=== PATIENT | male | born 1995 | race Caucasian/White ===

== ENCOUNTER 2016-07-19 16:24 | Emergency (ER) | payer OTHER ==
[~2016-07-19] VITALS: Ht 172.7 cm; Wt 65.8 kg
[~2016-07-19 16:24] MED LIST: ANTIBIOTIC O500 U/GM TP; AUGMENTIN 875875 MG PO; BACTRIM DS 8001 TA1 PO; DARVOCET N 1001 TAB PO; DOXYCYCLINE HY100 M3 PO; DOXYCYCLINE MO100 MG PO; HYDROCODONE BIT1 T11 PO; KETOROLAC10 MG PO; NAPROSYN500 MG PO; NKHM
[2016-07-19] MEDS ORDERED: BACTRIM DS 8001 TA1 PO (16:47)
[2016-07-19] MEDS ORDERED: CEPHALEXIN500 M1 PO (16:47)
== END 2016-07-19 17:01 | disposition home or self-care (01) ==
LOC: ED 16:24
DX: S41.112A Laceration without foreign body of left upper arm, initial encounter (principal); F17.200 Nicotine dependence, unspecified, uncomplicated; X78.9XXA Intentional self-harm by unspecified sharp object, initial encounter; Y93.89 Activity, other specified; Y92.9 Unspecified place or not applicable; Y99.9 Unspecified external cause status

== ENCOUNTER 2017-03-02 12:46 | Emergency (ER) | payer OTHER ==
[~2017-03-02] VITALS: Ht 167.6 cm; Wt 63.5 kg
[~2017-03-02 12:46] MED LIST changes: +CEPHALEXIN500 M1 PO
[2017-03-02] MEDS ORDERED: LOMOTIL 2.5-0.1 EACH PO (13:49)
[2017-03-02] MEDS ORDERED: AMOXICILLIN500 M2 PO (13:49)
== END 2017-03-02 13:53 | disposition home or self-care (01) ==
LOC: ED 12:46
DX: J01.90 Acute sinusitis, unspecified (principal); R19.7 Diarrhea, unspecified; F17.200 Nicotine dependence, unspecified, uncomplicated; F10.10 Alcohol abuse, uncomplicated; Z79.899 Other long term (current) drug therapy

== ENCOUNTER 2017-09-27 23:12 | Emergency (ER) | payer OTHER ==
[~2017-09-27] VITALS: Wt 72.6 kg
[~2017-09-27 23:12] MED LIST changes: +AMOXICILLIN500 M2 PO; +LOMOTIL 2.5-0.1 EACH PO
== END 2017-09-27 23:36 | disposition left against medical advice (07) ==
LOC: ED 23:12
DX: T40.1X1A Poisoning by heroin, accidental (unintentional), initial encounter (principal); F17.200 Nicotine dependence, unspecified, uncomplicated; Z90.89 Acquired absence of other organs; Y92.9 Unspecified place or not applicable

== ENCOUNTER 2018-12-12 01:04 | Emergency (ER) | payer OTHER ==
[~2018-12-12] VITALS: Wt 81.6 kg
== END 2018-12-12 01:49 | disposition left against medical advice (07) ==
LOC: ED 01:04
DX: S49.92XA Unspecified injury of left shoulder and upper arm, initial encounter (principal); Z53.21 Procedure and treatment not carried out due to patient leaving prior to being seen by health care provider; W22.8XXA Striking against or struck by other objects, initial encounter; Y93.89 Activity, other specified; Y92.89 Other specified places as the place of occurrence of the external cause; Y99.8 Other external cause status

== ENCOUNTER 2018-12-23 00:09 | Emergency (ER) | payer SELFPAY ==
[~2018-12-23] VITALS: Ht 170.1 cm; Wt 72.6 kg
[2018-12-23] MEDS ORDERED: CEFADROXIL500 M1 PO (01:29)
== END 2018-12-23 02:01 | disposition home or self-care (01) ==
LOC: ED 00:09
DX: S01.01XA Laceration without foreign body of scalp, initial encounter (principal); F10.920 Alcohol use, unspecified with intoxication, uncomplicated; Z79.2 Long term (current) use of antibiotics; Z79.899 Other long term (current) drug therapy; W18.09XA Striking against other object with subsequent fall, initial encounter; Y93.89 Activity, other specified; Y92.89 Other specified places as the place of occurrence of the external cause; Y99.8 Other external cause status

== ENCOUNTER 2019-03-29 01:20 | Emergency (ER) | payer OTHER ==
[~2019-03-29] VITALS: Wt 72.6 kg
[~2019-03-29 01:20] MED LIST changes: +CEFADROXIL500 M1 PO
== END 2019-03-29 01:45 | disposition home or self-care (01) ==
LOC: ED 01:20
DX: Z20.2 Contact with and (suspected) exposure to infections with a predominantly sexual mode of transmission (principal); Z79.2 Long term (current) use of antibiotics; Z79.899 Other long term (current) drug therapy; Z86.14 Personal history of Methicillin resistant Staphylococcus aureus infection

== ENCOUNTER 2019-10-19 22:48 | Emergency (ER) | payer OTHER ==
[~2019-10-19] VITALS: Ht 170.1 cm; Wt 63.5 kg
== END 2019-10-20 | disposition left against medical advice (07) ==
LOC: ED 22:48
DX: R42 Dizziness and giddiness (principal); Y08.89XA Assault by other specified means, initial encounter; Y93.89 Activity, other specified; Y92.89 Other specified places as the place of occurrence of the external cause; Y99.8 Other external cause status

== ENCOUNTER 2019-10-20 00:42 | Emergency (ER) | payer OTHER ==
[~2019-10-20] VITALS: Ht 172.7 cm; Wt 65.8 kg
== END 2019-10-20 03:47 | disposition left against medical advice (07) ==
LOC: ED 00:42
DX: S09.90XA Unspecified injury of head, initial encounter (principal); R42 Dizziness and giddiness; F17.200 Nicotine dependence, unspecified, uncomplicated; X58.XXXA Exposure to other specified factors, initial encounter; Y93.89 Activity, other specified; Y92.89 Other specified places as the place of occurrence of the external cause; Y99.8 Other external cause status

== ENCOUNTER 2019-10-20 21:37 | Emergency (ER) | payer OTHER ==
[~2019-10-20] VITALS: Ht 170.1 cm; Wt 65.8 kg
== END 2019-10-20 23:11 | disposition left against medical advice (07) ==
LOC: ED 21:37
DX: J34.89 Other specified disorders of nose and nasal sinuses (principal); Z53.29 Procedure and treatment not carried out because of patient's decision for other reasons; Y08.89XA Assault by other specified means, initial encounter; Y93.89 Activity, other specified; Y92.89 Other specified places as the place of occurrence of the external cause; Y99.8 Other external cause status

== ENCOUNTER 2019-11-01 21:10 | Emergency (ER) | payer OTHER ==
[~2019-11-01] VITALS: Ht 177.8 cm; Wt 70.3 kg
== END 2019-11-01 21:49 | disposition left against medical advice (07) ==
LOC: ED 21:10
DX: T14.90XA Injury, unspecified, initial encounter (principal); Z53.21 Procedure and treatment not carried out due to patient leaving prior to being seen by health care provider; X58.XXXA Exposure to other specified factors, initial encounter; Y93.89 Activity, other specified; Y92.89 Other specified places as the place of occurrence of the external cause; Y99.8 Other external cause status

== ENCOUNTER 2019-11-03 18:37 | Emergency (ER) | payer OTHER ==
[~2019-11-03] VITALS: Ht 170.1 cm; Wt 70.3 kg
== END 2019-11-03 18:57 | disposition left against medical advice (07) ==
LOC: ED 18:37
DX: S80.811A Abrasion, right lower leg, initial encounter (principal); S80.812A Abrasion, left lower leg, initial encounter; S00.91XA Abrasion of unspecified part of head, initial encounter; S20.319A Abrasion of unspecified front wall of thorax, initial encounter; S60.511A Abrasion of right hand, initial encounter; S40.811A Abrasion of right upper arm, initial encounter; Z53.21 Procedure and treatment not carried out due to patient leaving prior to being seen by health care provider; V29.9XXA Motorcycle rider (driver) (passenger) injured in unspecified traffic accident, initial encounter; Y93.89 Activity, other specified; Y92.89 Other specified places as the place of occurrence of the external cause; Y99.8 Other external cause status

== ENCOUNTER 2019-11-13 16:10 | Inpatient (IN) | payer OTHER ==
[~2019-11-13] VITALS: Ht 170.2 cm; Wt 69.5 kg
[2019-11-13 16:18] VITALS: BP 111/70
[2019-11-13 17:09] LABS: BASO % 0.2 % (0.0-1.0); EOS # 0.1 10*3/uL (0.0-0.4); EOS % 0.9 % (1.0-4.0); HEMATOCRIT 46.7 % (42.0-52.0); LYMPH # 1.6 10*3/uL (1.3-4.4); LYMPH % 12.7 % (27.0-41.0); MEAN CELL VOLUME 91.9 fl (80.0-94.0); MEAN CORPUSCULAR HGB 30.9 pg (27.0-31.0); MEAN CORPUSCULAR HGB CONC 33.6 g/dl (33.0-37.0); MEAN PLATELET VOLUME 11.2 fl (9.6-12.3); MONO # 1.1 10*3/uL (0.1-1.0); MONO % 8.1 % (3.0-9.0); NEUT # 10.1 10*3/uL (2.3-7.9); NEUT % 77.7 % (47.0-73.0); PLATELET COUNT AUTOMATED 211 10*3/uL (130-400); RED BLOOD COUNT 5.08 10*6/uL (4.50-5.90); RED CELL DISTRI WIDTH 12.8 % (0-14.5)
[2019-11-13 17:19] LABS: ACT PARTIAL THROMBO TIME 33.1 SECONDS (20.0-32.1)
[2019-11-13 17:25] LABS: ALBUMIN 3.3 gm/dl (3.1-4.5); ALKALINE PHOSPHATASE 95 U/L (45-117); BUN 13 mg/dl (7-24); CHLORIDE 105 mmol/L (98-107); CREATININE 1.19 mg/dL (0.70-1.30); LIPASE 109 U/L (73-393); SGOT/AST 38 IU/L (3-35); SGPT/ALT 71 U/L (12-78); SODIUM 138 mmol/L (136-145); TOTAL PROTEIN 7.6 gm/dL (6.4-8.2)
[2019-11-13 20:00] VITALS: BP 116/57
[2019-11-14] VITALS: BP 120/55
[2019-11-14 06:21] LABS: BASO % 0.2 % (0.0-1.0); EOS # 0.2 10*3/uL (0.0-0.4); EOS % 1.7 % (1.0-4.0); HEMATOCRIT 44.3 % (42.0-52.0); LYMPH # 3.4 10*3/uL (1.3-4.4); LYMPH % 28.1 % (27.0-41.0); MEAN CELL VOLUME 94.3 fl (80.0-94.0); MEAN CORPUSCULAR HGB 31.3 pg (27.0-31.0); MEAN CORPUSCULAR HGB CONC 33.2 g/dl (33.0-37.0); MEAN PLATELET VOLUME 11.3 fl (9.6-12.3); MONO % 8.1 % (3.0-9.0); NEUT # 7.4 10*3/uL (2.3-7.9); NEUT % 61.7 % (47.0-73.0); PLATELET COUNT AUTOMATED 185 10*3/uL (130-400)
[2019-11-14 06:32] LABS: ALBUMIN 2.8 gm/dl (3.1-4.5); ALKALINE PHOSPHATASE 81 U/L (45-117); BUN 13 mg/dl (7-24); CHLORIDE 109 mmol/L (98-107); CREATININE 1.02 mg/dL (0.70-1.30); SGOT/AST 23 IU/L (3-35); SGPT/ALT 52 U/L (12-78); SODIUM 141 mmol/L (136-145); TOTAL PROTEIN 6.6 gm/dL (6.4-8.2)
[2019-11-14 08:00] VITALS: BP 126/75
[2019-11-14 12:00] VITALS: BP 123/66
[2019-11-14 16:00] VITALS: BP 123/66; BP 126/71
[2019-11-14 20:00] VITALS: BP 128/71
[2019-11-15] VITALS: BP 133/81
[2019-11-15 07:27] LABS: BASO % 0.2 % (0.0-1.0); EOS # 0.3 10*3/uL (0.0-0.4); EOS % 2.4 % (1.0-4.0); HEMATOCRIT 43.8 % (42.0-52.0); LYMPH # 2.8 10*3/uL (1.3-4.4); LYMPH % 27.3 % (27.0-41.0); MEAN CELL VOLUME 92.4 fl (80.0-94.0); MEAN CORPUSCULAR HGB 30.8 pg (27.0-31.0); MEAN CORPUSCULAR HGB CONC 33.3 g/dl (33.0-37.0); MONO # 0.7 10*3/uL (0.1-1.0); MONO % 7.1 % (3.0-9.0); NEUT # 6.5 10*3/uL (2.3-7.9); NEUT % 62.7 % (47.0-73.0); PLATELET COUNT AUTOMATED 197 10*3/uL (130-400); RED BLOOD COUNT 4.74 10*6/uL (4.50-5.90); RED CELL DISTRI WIDTH 12.8 % (0-14.5); WHITE BLOOD COUNT 10.3 10*3/uL (4.8-10.8)
[2019-11-15 07:52] LABS: BUN 12 mg/dl (7-24); CHLORIDE 110 mmol/L (98-107); CREATININE 1.01 mg/dL (0.70-1.30); POTASSIUM 3.8 mmol/L (3.5-5.1); SODIUM 139 mmol/L (136-145)
[2019-11-15 08:00] VITALS: BP 134/77
[2019-11-15] MEDS ORDERED: SEPTDS PO (09:56)
[2019-11-15] MEDS ORDERED: CEPHALEXIN500 M1 PO (09:56)
== END 2019-11-15 11:40 | disposition home or self-care (01) | DRG 720 ==
LOC: ED 16:10 → EDHOLD 18:02 → 4E 18:02
PROVIDERS: Hospitalist; Nurse Practitioner Family; Student in an Organized Health Care Education/Training Program; ADMIT Emergency Medicine
DX: A41.9 Sepsis, unspecified organism (principal); L02.415 Cutaneous abscess of right lower limb; L03.115 Cellulitis of right lower limb; R74.0 Nonspecific elevation of levels of transaminase and lactic acid dehydrogenase [LDH]; R79.82 Elevated C-reactive protein (CRP); E44.0 Moderate protein-calorie malnutrition; B96.89 Other specified bacterial agents as the cause of diseases classified elsewhere; S81.001A Unspecified open wound, right knee, initial encounter; X58.XXXA Exposure to other specified factors, initial encounter; Y93.89 Activity, other specified; Y92.89 Other specified places as the place of occurrence of the external cause; Y99.8 Other external cause status; Z87.891 Personal history of nicotine dependence; Z83.3 Family history of diabetes mellitus; Z82.49 Family history of ischemic heart disease and other diseases of the circulatory system; Z80.9 Family history of malignant neoplasm, unspecified; Z82.5 Family history of asthma and other chronic lower respiratory diseases

== ENCOUNTER 2019-12-24 01:54 | Emergency (ER) | payer OTHER ==
[~2019-12-24] VITALS: Wt 70.8 kg
[~2019-12-24 01:54] MED LIST changes: +SEPTDS PO
[2019-12-24 02:17] LABS: BASO % 0.2 % (0.0-1.0); EOS # 0.1 10*3/uL (0.0-0.4); EOS % 1.1 % (1.0-4.0); HEMATOCRIT 47.6 % (42.0-52.0); LYMPH # 4.7 10*3/uL (1.3-4.4); LYMPH % 43.4 % (27.0-41.0); MEAN CELL VOLUME 91.4 fl (80.0-94.0); MEAN CORPUSCULAR HGB 30.3 pg (27.0-31.0); MEAN CORPUSCULAR HGB CONC 33.2 g/dl (33.0-37.0); MONO # 0.5 10*3/uL (0.1-1.0); MONO % 4.4 % (3.0-9.0); NEUT # 5.4 10*3/uL (2.3-7.9); NEUT % 50.6 % (47.0-73.0); PLATELET COUNT AUTOMATED 191 10*3/uL (130-400); RED BLOOD COUNT 5.21 10*6/uL (4.50-5.90); RED CELL DISTRI WIDTH 13.3 % (0-14.5); WHITE BLOOD COUNT 10.7 10*3/uL (4.8-10.8)
[2019-12-24 02:28] LABS: ACT PARTIAL THROMBO TIME 28.9 SECONDS (20.0-32.1); INTERNATIONAL NORM RATIO 1.1 (2.0-3.5)
[2019-12-24 02:33] LABS: ALBUMIN 3.9 gm/dl (3.1-4.5); ALKALINE PHOSPHATASE 97 U/L (45-117); BUN 5 mg/dl (7-24); CHLORIDE 106 mmol/L (98-107); CREATININE 1.19 mg/dL (0.70-1.30); LIPASE 114 U/L (73-393); POTASSIUM 3.6 mmol/L (3.5-5.1); SGOT/AST 51 IU/L (3-35); SGPT/ALT 61 U/L (12-78); SODIUM 140 mmol/L (136-145); TOTAL PROTEIN 7.9 gm/dL (6.4-8.2)
[2019-12-24 02:34] LABS: ACETAMINOPHEN (TYLENOL) < 3.0 ug/ml (10-30); TROPONIN I < 0.015 ng/ml (<0.045)
== END 2019-12-24 03:52 | disposition left against medical advice (07) ==
LOC: ED 01:54
PROVIDERS: Emergency Medicine Emergency Medical Services
DX: T40.2X1A Poisoning by other opioids, accidental (unintentional), initial encounter (principal); R40.20 Unspecified coma; F17.200 Nicotine dependence, unspecified, uncomplicated; Z79.2 Long term (current) use of antibiotics; Z86.14 Personal history of Methicillin resistant Staphylococcus aureus infection; Z90.89 Acquired absence of other organs; Y92.89 Other specified places as the place of occurrence of the external cause

== ENCOUNTER 2020-02-15 22:11 | Emergency (ER) | payer OTHER | END 2020-02-15 23:15 | disposition home or self-care (01) | LOC: ED 22:11 | DX: T40.1X1A Poisoning by heroin, accidental (unintentional), initial encounter (principal); R53.83 Other fatigue; F17.200 Nicotine dependence, unspecified, uncomplicated; Z79.2 Long term (current) use of antibiotics; Y92.89 Other specified places as the place of occurrence of the external cause ==

== ENCOUNTER 2020-07-14 23:44 | Emergency (ER) | payer OTHER ==
[~2020-07-14] VITALS: Ht 172.7 cm; Wt 78.0 kg
[2020-07-14] MEDS ORDERED: SUBOXONE 8 MG-1 EACH SL (23:57)
== END 2020-07-15 00:10 | disposition left against medical advice (07) ==
LOC: ED 23:44
DX: Z00.8 Encounter for other general examination (principal); Z53.21 Procedure and treatment not carried out due to patient leaving prior to being seen by health care provider

== ENCOUNTER 2020-07-21 19:04 | Emergency (ER) | payer OTHER ==
[~2020-07-21] VITALS: Ht 172.7 cm; Wt 74.8 kg
[~2020-07-21 19:04] MED LIST changes: +SUBOXONE 8 MG-1 EACH SL
[2020-07-21 20:01] LABS: BASO % 0.2 % (0.0-1.0); EOS # 0.1 10*3/uL (0.0-0.4); EOS % 0.6 % (1.0-4.0); HEMATOCRIT 42.1 % (42.0-52.0); LYMPH # 1.8 10*3/uL (1.3-4.4); LYMPH % 20.7 % (27.0-41.0); MEAN CELL VOLUME 91.1 fl (80.0-94.0); MEAN CORPUSCULAR HGB 30.5 pg (27.0-31.0); MEAN CORPUSCULAR HGB CONC 33.5 g/dl (33.0-37.0); MEAN PLATELET VOLUME 11.4 fl (9.6-12.3); MONO # 0.6 10*3/uL (0.1-1.0); NEUT # 6.1 10*3/uL (2.3-7.9); NEUT % 71.1 % (47.0-73.0); PLATELET COUNT AUTOMATED 151 10*3/uL (130-400); RED BLOOD COUNT 4.62 10*6/uL (4.50-5.90); RED CELL DISTRI WIDTH 12.8 % (0-14.5); WHITE BLOOD COUNT 8.6 10*3/uL (4.8-10.8)
[2020-07-21 20:18] LABS: ALBUMIN 3.9 gm/dl (3.1-4.5); BUN 16 mg/dl (7-24); CHLORIDE 105 mmol/L (98-107); CREATININE 1.37 mg/dL (0.70-1.30); POTASSIUM 4.5 mmol/L (3.5-5.1); SGOT/AST 38 IU/L (3-35); SGPT/ALT 35 U/L (12-78); SODIUM 139 mmol/L (136-145); TOTAL PROTEIN 7.6 gm/dL (6.4-8.2)
[2020-07-21 20:19] LABS: ALKALINE PHOSPHATASE 68 U/L (45-117); CPK 315 U/L (39-308)
== END 2020-07-21 20:35 ==
LOC: ED 19:04
PROVIDERS: Internal Medicine
DX: S93.401A Sprain of unspecified ligament of right ankle, initial encounter (principal); T14.8XXA Other injury of unspecified body region, initial encounter; N17.9 Acute kidney failure, unspecified; Z79.899 Other long term (current) drug therapy; Z98.890 Other specified postprocedural states; X58.XXXA Exposure to other specified factors, initial encounter; Y93.89 Activity, other specified; Y92.89 Other specified places as the place of occurrence of the external cause; Y99.8 Other external cause status

== ENCOUNTER 2020-09-27 21:28 | Emergency (ER) | payer OTHER ==
[~2020-09-27] VITALS: Ht 170.1 cm; Wt 72.6 kg
[2020-09-28] MEDS ORDERED: NAPROSYN500 MG PO (02:17)
== END 2020-09-28 02:40 | disposition home or self-care (01) ==
LOC: ED 21:28
DX: S50.11XA Contusion of right forearm, initial encounter (principal); M25.462 Effusion, left knee; M79.605 Pain in left leg; M54.5 Low back pain; Z79.899 Other long term (current) drug therapy; X58.XXXA Exposure to other specified factors, initial encounter; Y93.89 Activity, other specified; Y92.89 Other specified places as the place of occurrence of the external cause; Y99.8 Other external cause status

== ENCOUNTER 2020-10-01 03:19 | Emergency (ER) | payer OTHER ==
[~2020-10-01] VITALS: Ht 172.7 cm; Wt 71.2 kg
[2020-10-01 05:31] LABS: ALBUMIN 1.9 gm/dl (3.1-4.5); CREATININE 9.83 mg/dL (0.70-1.30); POTASSIUM 4.4 mmol/L (3.5-5.1); TOTAL PROTEIN 6.3 gm/dL (6.4-8.2)
[2020-10-01 05:33] LABS: BILIRUBIN 1+ (Negative); BLOOD 3+ (Negative); CLARITY Cloudy (Clear); COLOR Dark Yellow (Yellow); GLUCOSE Trace (Negative); KETONE Trace (Negative); LEUKO ESTERASE 1+ (Negative); NITRITE Negative (Negative)
[2020-10-01 05:50] LABS: HEMATOCRIT 31.3 % (42.0-52.0); MEAN CELL VOLUME 79.8 fl (80.0-94.0); MEAN CORPUSCULAR HGB 28.6 pg (27.0-31.0); MEAN CORPUSCULAR HGB CONC 35.8 g/dl (33.0-37.0); MEAN PLATELET VOLUME 11.8 fl (9.6-12.3); PLATELET COUNT AUTOMATED 77 10*3/uL (130-400); RED BLOOD COUNT 3.92 10*6/uL (4.50-5.90); RED CELL DISTRI WIDTH 13.8 % (0-14.5); WHITE BLOOD COUNT 18.1 10*3/uL (4.8-10.8)
[2020-10-01 05:51] LABS: URINE AMPHETAMINES > 1000 (1000ng/ml); URINE BARBITURATES < 200 (200ng/ml); URINE BENZODIAZEPINES < 200 (200ng/ml); URINE CANNABINOIDS (THC) < 50 (50ng/ml); URINE COCAINE > 300 (300ng/ml); URINE METHADONE < 300 (300ng/ml); URINE OPIATES < 300 (300ng/ml)
[2020-10-01 06:01] LABS: BACTERIA 1+; EPITHELIAL CELLS 21-30; RBC TNTC rbc/hpf (0-2); WBC 41-50 wbc/hpf (0-5)
[2020-10-01 06:03] LABS: YEAST 4+
[2020-10-01 06:06] LABS: URINE PHENCYCLIDINE < 25 (25ng/ml)
[2020-10-01 07:00] LABS: TOTAL CELLS COUNTED 100 #CELLS
[2020-10-01 07:01] LABS: BURR CELLS MODERATE; PLATELET SUFFICIENCY LOW (NORMAL)
[2020-10-01 08:44] LABS: ARTERIAL BLOOD GAS PH 7.398 (7.35-7.45); ARTERIAL BLOOD GAS PO2 73.1 (80-90)
== END 2020-10-01 10:03 | disposition short-term general hospital (02) ==
LOC: ED 03:19
PROVIDERS: Emergency Medicine
DX: T79.6XXA Traumatic ischemia of muscle, initial encounter (principal); I50.9 Heart failure, unspecified; N19 Unspecified kidney failure; F17.200 Nicotine dependence, unspecified, uncomplicated; Z79.899 Other long term (current) drug therapy; Z86.14 Personal history of Methicillin resistant Staphylococcus aureus infection; Z90.89 Acquired absence of other organs; W18.09XA Striking against other object with subsequent fall, initial encounter; Y93.89 Activity, other specified; Y92.89 Other specified places as the place of occurrence of the external cause; Y99.8 Other external cause status